=== PATIENT | male | born 1945 | race Caucasian/White ===

== ENCOUNTER 2024-09-05 08:24 | Day surgery (SDC) | payer OTHER ==
[2024-08-31 11:42] VITALS: BMI 33.9
[2024-09-05] MEDS ORDERED: LIDOCAINE HCL/PF 2% SDV 5ML VIAL ONE (09:21)
[2024-09-05] MEDS ORDERED: PROPOFOL 100 ML ONE (09:22)
[2024-09-05] MEDS ORDERED: MIDAZOLAM HCL 2 MG/2 ML SINGLE DOSE VIAL ONE (09:22)
[2024-09-05] MEDS ORDERED: BUPIVACAINE HCL/PF 0.5% (5MG/ML) 10 ML VIAL ONE (09:57)
[2024-09-05] MEDS ORDERED: DEXAMETHASONE SOD PHOSPHATE 4 MG/1 ML VIAL ONE (10:05)
[2024-09-05] MEDS ORDERED: BUPIVACAINE LIPOSOME/PF (EXPAREL) 266 MG/20 ML VIAL ONE (10:27)
[2024-09-05] MEDS ORDERED: TRANEXAMIC ACID 1000 MG/10 ML VIAL ONE (10:58)
[2024-09-05] MEDS ORDERED: ceFAZolin SODIUM 1 GM VIAL ONE (10:58)
[2024-09-05] MEDS ORDERED: ALBUTEROL SO4 HFA INHALER IH ONE (12:20)
[2024-09-05] MEDS ORDERED: ONDANSETRON 4 MG/2 ML VIAL IVPUSH PRN ×2 (12:57→13:48)
[2024-09-05] MEDS ORDERED: ACETAMINOPHEN INJECTION 100 ML ONE (13:27)
[2024-09-05] MEDS: ACETAMINOPHEN 1000 MG/100 ML BAG IVPB ONE (13:30)
[2024-09-05] MEDS: KETOROLAC TROMETHAMINE 30 MG/1 ML VIAL IVPUSH SCH ×2 (13:32→19:30)
[2024-09-05] MEDS ORDERED: MAG HYDROX/AL HYDROX/SIMETH 30 ML UNIT-DOSE CUP PO PRN (13:48)
[2024-09-05] MEDS ORDERED: MAGNESIUM HYDROX 2400MG/30ML ORAL SUSPENSION 30 ML CUP PO PRN (13:48)
[2024-09-05] MEDS: SODIUM CHLORIDE 1,000 ML IV SCH (14:25)
[2024-09-05] MEDS: oxyCODONE HCL 5 MG TABLET PO PRN ×2 (15:36→19:31)
[2024-09-05] MEDS: LACTATED RINGERS SOLUTION 1,000 ML IV SCH (17:08)
[2024-09-05] MEDS: ACETAMINOPHEN 500 MG TABLET (FP) PO SCH (17:09)
[2024-09-05] MEDS: CEFAZOLIN 2 GM/D5W 2 GRAM/50 ML ML IVPB SCH (18:31)
[2024-09-05] MEDS ORDERED: CELECOXIB 100 MG CAPSULE PO SCH (22:00)
[2024-09-05] MEDS: DEXAMETHASONE 4 MG TABLET (FP) PO SCH (22:03)
[2024-09-05] MEDS: FAMOTIDINE 20 MG TABLET PO SCH (22:03)
[2024-09-05] MEDS: TRANEXAMIC ACID 1000 MG/10 ML VIAL IVPB SCH (22:04)
[2024-09-05] MEDS: ACETAMINOPHEN 1000 MG/100 ML BAG IVPB SCH (22:04)
[2024-09-05] MEDS: SENNOSIDES/DOCUSATE COMBO (SENNA PLUS) TABLET (UD) PO SCH (22:04)
[2024-09-05] MEDS: ASPIRIN 81 MG CHEWABLE TABLETS PO SCH (22:05)
[2024-09-05] MEDS: oxyCODONE HCL 10 MG SUSTAINED ACTING TABLET PO SCH (22:09)
[2024-09-06] MEDS: LOSARTAN POTASSIUM 50 MG TABLET PO SCH (09:21)
[2024-09-06] MEDS: LOSARTAN 50MG/HCTZ 12.5MG 1 TAB PO SCH (09:21)
[2024-09-06] MEDS: TAMSULOSIN HCL 0.4 MG CAP PO SCH (09:21)
[2024-09-06] MEDS: amLODIPine BESYLATE 5 MG TABLET (FP) PO SCH (09:22)
[2024-09-06] MEDS ORDERED: PATIENT'S OWN MEDICATION (NON-FORMULARY) (Losartan/Hydrochlorothiazide [Losartan-Hctz 100- PO SCH (10:00)
[2024-09-06 10:23] VITALS: TEMP 97.7
[2024-09-06] MEDS: ACETAMINOPHEN 500 MG TABLET (FP) PO SCH (11:51)
[2024-09-06 14:22] VITALS: BP 125/68; PULSE 48; RESP 19
== END 2024-09-06 14:15 | disposition home health service (06) ==
LOC: FASUSAT 08:24 → FM/S 14:49 → FASUSAT 09-06 14:15
PROVIDERS: ATTEND Orthopaedic Surgery
PROC: 0SRC0J9 Replacement of Right Knee Joint with Synthetic Substitute, Cemented, Open Approach (ICD-10-PCS; principal; 2024-09-05 11:23)
DX: M17.11 Unilateral primary osteoarthritis, right knee (principal)
CPT/HCPCS: 27447; C1776; 73560-TC-RT-FY; 82962; 94760; 97010-GP; 97116-GP; 97162-GP; J0666